=== PATIENT | female | born 2000 | race Caucasian/White ===

== ENCOUNTER 2021-01-10 17:05 | Emergency (ER) | payer OTHER ==
[2021-01-10 18:19] LABS: HEMOGLOBIN 12.9 gm/dl (12.3-15.3); RED BLOOD COUNT 4.4 M/UL (4.00-5.10); WHITE BLOOD COUNT 13.4 K/UL (4.5-11.0)
[2021-01-10 18:51] LABS: BUN/CREATININE RATIO 13 (0-10)
[2021-01-10] MEDS ORDERED: MACROBID 100 M100 MG PO (19:11)
== END 2021-01-10 19:33 | disposition home or self-care (01) ==
LOC: ER1 17:05
PROVIDERS: Physician Assistant
DX: O99.891 Other specified diseases and conditions complicating pregnancy (principal); R55 Syncope and collapse; Z3A.14 14 weeks gestation of pregnancy; Z79.899 Other long term (current) drug therapy
CPT/HCPCS: 80053; 81001; 82550; 82553; 83874; 84484; 85025; 87086; 93005; 99284